=== PATIENT | male | born 2000 ===

== ENCOUNTER 2023-09-20 08:42 | Outpatient (REF) | payer OTHER, SELFPAY ==
--- NOTE | ~2023-09-20 | US_ITS ---
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 COMPARISON: None available. TECHNIQUE: Real-time imaging of the kidneys. Limited visualization due to bowel gas and body habitus. FINDINGS: RIGHT KIDNEY: 9.8 x 4.8 x 5.2 cm (SAG x AP x TRV). No hydronephrosis. No renal calculi. Renal cortical thickness is normal. Limited visualization. LEFT KIDNEY: 9.8 x 5.0 x 4.8 cm (SAG x AP x TRV). No hydronephrosis. No renal calculi. Renal cortical thickness is normal. Limited visualization. US/US renal BI IMPRESSION: No hydronephrosis. No renal calculi. Renal cortical thickness is normal. Limited visualization. CT scan recommended for better visualization for detection of possible tumor.
== END 2023-09-20 08:43 | disposition home or self-care (01) ==
LOC: HO.UMASIMG 08:42
PROVIDERS: Visit Provider Family Medicine
DX: E25.0 Congenital adrenogenital disorders associated with enzyme deficiency (principal)
CPT/HCPCS: 76775